=== PATIENT | female | born 1985 | race Caucasian/White ===

== ENCOUNTER 2018-07-19 01:15 | Inpatient (IN) ==
[2018-07-19] MEDS ORDERED: LACTATED RINGER'S 1,000 ML IV SCH (02:00)
[2018-07-19] MEDS ORDERED: OXYTOCIN 30 UNITS/500 ML BAG IV PRN ×2 (02:00→09:18)
[2018-07-19] MEDS ORDERED: LACTATED RINGER'S 1,000 ML IV PRN (02:00)
[2018-07-19 02:24] LABS: Hematocrit (blood only) 30.9 % (37-47); Hemoglobin 10.1 g/dL (12.0-16.0); Mean Corpuscular Volume 80.3 fL (80-100); Mean Platelet Volume 9.9 fL (7.4-10.4); Platelet Count 184 K/uL (130-400); RDW Coefficient of Variation 13.4 % (11.5-14.5); Red Blood Count 3.85 M/uL (4.2-5.4); White Blood Count 14.91 K/uL (4.8-10.8)
[2018-07-19 02:31] LABS: Mean Corpuscular Hgb Conc 32.7 g/dL (32-36)
[2018-07-19] MEDS ORDERED: miSOPROStol 50 MCG TAB PO ONE (03:30)
[2018-07-19] MEDS ORDERED: BENZOCAINE 20% AER SPR 82.5 GM CAN EXT PRN (09:18)
[2018-07-19] MEDS ORDERED: HYDROCORTISONE ACETATE 25 MG SUPP PR PRN (09:18)
[2018-07-19] MEDS ORDERED: DIPHTHERIA/TETANUS/PERTUSSIS 0.5 ML SYR/VIAL IM ONE (09:18)
[2018-07-19] MEDS ORDERED: ACETAMINOPHEN 325 MG TAB PO PRN (09:18)
[2018-07-19] MEDS ORDERED: OXYCODONE/ACETAMINOPHEN 5mg/325mg TAB PO PRN (09:18)
[2018-07-19] MEDS ORDERED: ACETAMINOPHEN W/CODEINE #3 1 TAB PO PRN (09:18)
[2018-07-19] MEDS ORDERED: SUPERCREAM 0.870% 15 GM JAR EXT PRN (09:18)
--- NOTE | 2018-07-19 10:16 | Delivery Summary ---
DATE OF OPERATION: 07/19/2018 Patient was admitted with catalina rupture of membranes at 37+ weeks gestation. She was not having any contractions on admission, she was 1 cm. Membrane rupture was confirmed. She was given 1 tablet of oral Cytotec 50 mcg p.o. She went into labor and then had a spontaneous vaginal delivery over an intact perineum. was suctioned through the mouth and the nose. Shoulders were delivered without difficulty. Cord was clamped, cut by the father. Cord blood was taken. With IV Pitocin running, the placenta was removed intact. Inspection of the perineum revealed a first degree laceration. There was a small inclusion cyst that was excised, and then, the vaginal mucosa was approximated out and to beyond the hymenal ring with a running 2-0 Vicryl. A deep 2-0 Vicryl was used to approximate the bulbocavernosus muscle. Separate deep suture was used to approximate the perineal body, and then a running subcuticular suture was used to approximate the perineal skin edges. Following this, vaginal exam including rectovaginal examination revealed no hematoma formation or sponges in the vagina. Estimated blood loss was 200 mL. Rectovaginal exam was normal. Estimated Apgars were 8 and 9 respectively. I attest to the content of the Intraoperative Record and any orders documented therein. Any exception s are noted below.
[2018-07-19] MEDS: IBUPROFEN 600 MG TAB PO PRN ×3 (10:31→19:14)
[2018-07-19] MEDS: DOCUSATE SODIUM 100 MG CAP PO SCH (20:45)
[2018-07-20] MEDS: IBUPROFEN 600 MG TAB PO PRN ×3 (04:15→16:25)
[2018-07-20 05:52] LABS: Hematocrit (blood only) 29.8 % (37-47); Hemoglobin 9.5 g/dL (12.0-16.0); Mean Corpuscular Hgb Conc 31.9 g/dL (32-36); Mean Corpuscular Volume 81.4 fL (80-100); Mean Platelet Volume 9.9 fL (7.4-10.4); Platelet Count 165 K/uL (130-400); RDW Coefficient of Variation 13.7 % (11.5-14.5); RDW Standard Deviation 40.8 fL (36.4-46.3); Red Blood Count 3.66 M/uL (4.2-5.4)
--- NOTE | 2018-07-20 08:29 | Obstetrical Progress Note ---
Date of Service July 20, 2018 Subjective Patient is seen and examined. She feels well, no complaints. Likes to be discharged Ambulating without dizziness Voiding without difficulty Tolerating regular diet with out N&V Bleeding is minimal No fever/ chills/ CP/ SOB/ N&V/ Leg pain Breast feeding without problems Vital Signs Temp Pulse Pulse Resp BP BP Pulse Ox 07/20/18 04:10 36.5 C 66 16 108/65 97 07/19/18 23:28 36.5 C 82 18 114/63 96 07/19/18 19:20 36.4 C L 89 18 147/78 H 98 07/19/18 15:00 36.5 C 83 16 117/76 07/19/18 13:30 36.4 C L 20 127/72 07/19/18 12:45 20 07/19/18 12:29 103 H 128/65 07/19/18 12:14 113 H 119/65 07/19/18 12:00 96 H 110/59 L 07/19/18 11:44 108 H 111/69 07/19/18 11:29 116 H 112/71 07/19/18 11:15 20 07/19/18 11:14 111 H 108/60 07/19/18 10:59 99 H 129/67 07/19/18 10:45 20 07/19/18 10:44 97 H 121/69 07/19/18 10:29 94 H 136/68 07/19/18 10:15 20 07/19/18 10:14 90 133/71 07/19/18 10:00 20 07/19/18 09:59 91 H 116/71 07/19/18 09:45 20 07/19/18 09:44 84 119/72 07/19/18 09:30 20 07/19/18 09:29 89 137/68 07/19/18 09:15 20 07/19/18 09:14 75 128/70 07/20/18 Range/Units 05:27 WBC 17.90 H (4.8-10.8) K/uL RBC 3.66 L (4.2-5.4) M/uL Hgb 9.5 L (12.0-16.0) g/dL Hct 29.8 L (37-47) % MCV 81.4 (80-100) fL MCH 26.0 (25-34) pg MCHC 31.9 L (32-36) g/dL RDW Std Deviation 40.8 (36.4-46.3) fL RDW Coeff of Deedee 13.7 (11.5-14.5) % Plt Count 165 (130-400) K/uL MPV 9.9 (7.4-10.4) fL PE: General: Alert, orientedx3, NAD Abd: soft, NT, fundus firm, below Umbilicus Perineum intact, Lochia rubra minimal Ext; NT, no edema AP: 32 yo s/p , ppd# 1 VSS Afebrile doing well Continue routine care All questions were answered Desires D/C home today Plan to repeat CBC for WBCC trend and d/c Physical Exam 2 Vital Signs (Past 24 Hours): Last Vital Signs Temp 36.5 C 07/20/18 04:10 Pulse 66 07/20/18 04:10 Resp 16 07/20/18 04:10 BP 108/65 07/20/18 04:10 Pulse Ox 97 07/20/18 04:10
[2018-07-20] MEDS: PRENATAL VITAMIN 1 TAB PO SCH (08:30)
[2018-07-20] MEDS: DOCUSATE SODIUM 100 MG CAP PO SCH ×2 (08:30→20:08)
[2018-07-20 13:03] LABS: Basophils # (auto) 0.09 K/uL (0-0.2); Basophils % (auto) 0.5 %; Hematocrit (blood only) 31.5 % (37-47); Hemoglobin 10.2 g/dL (12.0-16.0); Immature Granulocytes # (auto) 0.32 K/uL (0.00-0.02); Immature Granulocytes % (auto) 1.6 %; Lymphocytes # (auto) 3.56 K/uL (1.2-3.4); Lymphocytes % (auto) 17.9 %; Mean Corpuscular Hgb Conc 32.4 g/dL (32-36); Mean Corpuscular Volume 81.6 fL (80-100); Mean Platelet Volume 9.9 fL (7.4-10.4); Monocytes # (auto) 1.18 K/uL (0.11-0.59); Monocytes % (auto) 5.9 %; Neutrophils # (auto) 14.52 K/uL (1.4-6.5); Neutrophils % (auto) 73.1 %; Platelet Count 205 K/uL (130-400); RDW Coefficient of Variation 13.8 % (11.5-14.5); RDW Standard Deviation 40.8 fL (36.4-46.3); Red Blood Count 3.86 M/uL (4.2-5.4); White Blood Count 19.87 K/uL (4.8-10.8)
--- NOTE | 2018-07-20 14:46 | Obstetrical Progress Note ---
Date of Service July 20, 2018 Subjective Patient feels well no complaints No fever/ chills/ pain WBCC was elevated Repeat CBC: 07/20/18 07/20/18 Range/Units 12:51 05:27 WBC 19.87 H 17.90 H (4.8-10.8) K/uL RBC 3.86 L 3.66 L (4.2-5.4) M/uL Hgb 10.2 L 9.5 L (12.0-16.0) g/dL Hct 31.5 L 29.8 L (37-47) % MCV 81.6 81.4 (80-100) fL MCH 26.4 26.0 (25-34) pg MCHC 32.4 31.9 L (32-36) g/dL RDW Std Deviation 40.8 40.8 (36.4-46.3) fL RDW Coeff of Deedee 13.8 13.7 (11.5-14.5) % Plt Count 205 165 (130-400) K/uL MPV 9.9 9.9 (7.4-10.4) fL Immature Gran % (Auto) 1.6 % Neut % (Auto) 73.1 % Lymph % (Auto) 17.9 % [place] % (Auto) 5.9 % Eos % (Auto) 1.0 % Baso % (Auto) 0.5 % Immature Gran # (Auto) 0.32 H (0.00-0.02) K/uL Neut # (Auto) 14.52 H (1.4-6.5) K/uL Lymph # (Auto) 3.56 H (1.2-3.4) K/uL Sherman # (Auto) 1.18 H (0.11-0.59) K/uL Eos # (Auto) 0.20 (0-0.5) K/uL Baso # (Auto) 0.09 (0-0.2) K/uL She has been afebrile Baby has been well Has not been discharged yet Agrees to stay overnight Plan to repeat CBC in am Physical Exam 2 Vital Signs (Past 24 Hours): Last Vital Signs Temp 37 C 07/20/18 13:30 Pulse 100 H 07/20/18 13:30 Resp 16 07/20/18 13:30 BP 125/77 07/20/18 13:30 Pulse Ox 97 07/20/18 13:30
[2018-07-20] MEDS ORDERED: BISACODYL 5 MG TABEC PO SCH (20:00)
[2018-07-21] MEDS: IBUPROFEN 600 MG TAB PO PRN ×3 (03:37→11:46)
[2018-07-21 06:23] LABS: Basophils # (auto) 0.06 K/uL (0-0.2); Basophils % (auto) 0.4 %; Eosinophils # (auto) 0.37 K/uL (0-0.5); Eosinophils % (auto) 2.4 %; Hematocrit (blood only) 27.4 % (37-47); Hemoglobin 8.9 g/dL (12.0-16.0); Immature Granulocytes # (auto) 0.26 K/uL (0.00-0.02); Immature Granulocytes % (auto) 1.7 %; Lymphocytes % (auto) 16.9 %; Mean Corpuscular Hgb Conc 32.5 g/dL (32-36); Mean Corpuscular Volume 81.5 fL (80-100); Mean Platelet Volume 9.4 fL (7.4-10.4); Monocytes # (auto) 1.03 K/uL (0.11-0.59); Monocytes % (auto) 6.7 %; Neutrophils # (auto) 11.05 K/uL (1.4-6.5); Neutrophils % (auto) 71.9 %; Platelet Count 154 K/uL (130-400); RDW Coefficient of Variation 13.8 % (11.5-14.5); RDW Standard Deviation 41.1 fL (36.4-46.3); Red Blood Count 3.36 M/uL (4.2-5.4); White Blood Count 15.37 K/uL (4.8-10.8)
[2018-07-21 06:51] LABS: Microcytosis Present
[2018-07-21] MEDS ORDERED: BISACODYL 10 MG SUPP PR PRN (07:00)
--- NOTE | 2018-07-21 08:43 | Obstetrical Progress Note ---
Date of Service July 21, 2018 Subjective doing fine plans to go home today Physical Exam 2 Vital Signs (Past 24 Hours): Last Vital Signs Temp 36.7 C 07/21/18 00:00 Pulse 91 H 07/21/18 00:00 Resp 18 07/21/18 00:00 BP 126/78 07/21/18 00:00 Pulse Ox 97 07/20/18 13:30 Constitutional: WD/WN, vitals as above comfortable Skin: no rashes, warm and dry Abdomen soft and non-tender no edema negative Joesph[facility] for discharge today Results & Data Diagnostic Findings Laboratory Results - last 48 hr 07/20/18 07/20/18 07/21/18 05:27 12:51 05:57 WBC 17.90 H 19.87 H 15.37 H RBC 3.66 L 3.86 L 3.36 L Hgb 9.5 L 10.2 L 8.9 L Hct 29.8 L 31.5 L 27.4 L MCV 81.4 81.6 81.5 MCH 26.0 26.4 26.5 MCHC 31.9 L 32.4 32.5 RDW Std Deviation 40.8 40.8 41.1 RDW Coeff of Deedee 13.7 13.8 13.8 Plt Count 165 205 154 MPV 9.9 9.9 9.4 Immature Gran % (Auto) 1.6 1.7 Neut % (Auto) 73.1 71.9 Lymph % (Auto) 17.9 16.9 [place] % (Auto) 5.9 6.7 Eos % (Auto) 1.0 2.4 Baso % (Auto) 0.5 0.4 Immature Gran # (Auto) 0.32 H 0.26 H Neut # (Auto) 14.52 H 11.05 H Lymph # (Auto) 3.56 H 2.60 [place] # (Auto) 1.18 H 1.03 H Eos # (Auto) 0.20 0.37 Baso # (Auto) 0.09 0.06 Microcytosis Present
[2018-07-21] MEDS: PRENATAL VITAMIN 1 TAB PO SCH (10:12)
[2018-07-21] MEDS: DOCUSATE SODIUM 100 MG CAP PO SCH (10:12)
== END 2018-07-21 12:50 | disposition home or self-care (01) | DRG 807 ==
LOC: OPB 01:15 → 4S1 01:19 → 4S2 13:00

== ENCOUNTER 2024-12-10 17:08 | Inpatient (IN) ==
[2024-12-10 17:24] VITALS: BP 138/85; PULSE 101
[2024-12-10 17:40] VITALS: RESP 18; TEMP 98.1
[2024-12-10] MEDS ORDERED: LIDOCAINE 1% LOCAL 20 ML VIAL INFIL PRN (18:03)
[2024-12-10] MEDS ORDERED: OXYTOCIN 30 UNITS/NSS 30 UNITS/500 ML BAG IV PRN (18:03)
[2024-12-10] MEDS ORDERED: LACTATED RINGER'S 1,000 ML IV PRN (18:03)
[2024-12-10 18:42] LABS: Hematocrit (blood only) 35.1 % (37.0-47.0); Hemoglobin 12.1 g/dl (12.0-16.0); Mean Corpuscular Hemoglobin 29.4 pg (25.0-34.0); Mean Corpuscular Hgb Conc 34.5 g/dL (32.0-36.0); Mean Corpuscular Volume 85.4 fL (80.0-100.0); Mean Platelet Volume 9.7 fL (9.4-12.4); Platelet Count 160 K/uL (130-400); RDW Coefficient of Variation 13.2 % (11.5-14.5); RDW Standard Deviation 41.1 fL (36.4-46.3); Red Blood Count 4.11 M/uL (4.20-5.40); White Blood Count 14.84 K/ul (4.8-10.8)
--- NOTE | 2024-12-10 20:07 | Ultrasound Report ---
INDICATION: . Concern for premature rupture of the membrane. COMPARISON: None TECHNIQUE: Transabdominal obstetrics ultrasound was performed. FINDINGS: presentation: Cephalic Amniotic fluid amount: Subjectively within normal limits. BIANCA: 22.34 cm Placental position: Anterior and appears unremarkable Heart rate: 159 beats per minute IMPRESSION: Single live intrauterine measuring 31 weeks and 2 days by AUA. cardiac activity of 159 bpm. Subjectively unremarkable amniotic fluid content on ultrasound however please clinically correlate. Electronically signed by Carter Morejon 12-10-2024 8:07 PM
--- NOTE | 2024-12-10 20:15 | Progress Note ---
Date of Service December 10, 2024 Assessment & Plan (1) Encounter for suspected problem with amniotic cavity and membrane ruled out: Plan: Patient is a 39-year-old G4, P2 at 36 weeks. Patient has been seen in the office along with [facility] consults for PNC. She gets BPP weekly through the [facility] office in [place], [place] Patient was last seen by [facility] on 12/08/2024 BPP was done and BIANCA was 22. Today patient was seen in office for care. She complained of vaginal wetness in the morning. She was examined by the PA. There was no gross pooling in the vagina. There was negative pooling upon Valsalva. However the nitrazine was positive and the office test for rupture of membranes was also positive. Patient was sent to labor and delivery. Upon arrival to labor and delivery patient was not wearing a pad or a towel there was no gross pooling. She was put on the monitor heart rate was category 1 there was no contraction on the monitor speculum exam showed no gross pooling. There was some bloody discharge from her previous exam in the office. AmniSure in the show done was slightly positive but ferning was negative and repeat nitrazine was also negative I asked patient to cough there was no fluid in the vagina the cervix was 1 cm dilated. Ferning on microscopy is negative. I repeated the ultrasound via radiology at bedside. BIANCA was 22 same as BIANCA on 12/08/2024. I have discussed my findings with patient and spouse. I think with an BIANCA of 22 if patient was leaking fluid it would be obvious. Once again the BIANCA is unchanged the last 48 hours by 2 different sonographers in 2 different sites. I given patient and spouse instructions and they can return for reevaluation if they think there is an increased or persistent wetness. Admission and Anticipated Discharge Date Admission Date: December 10, 2024 Results & Data Vital Signs (Past 12 Hours) Vital Signs Temp Pulse Resp BP 12/10/24 17:32 36.7 C 18 12/10/24 17:23 101 H 138/85
== END 2024-12-10 20:05 | disposition home or self-care (01) | DRG 833 ==
LOC: OPB 17:08 → 4S1 17:09 → INTOOBSV 18:04 → OBSVTOIN 18:04 → 4S1 18:04